=== PATIENT | male | born 1945 | race Caucasian/White ===

== ENCOUNTER 2022-09-21 01:18 | Emergency (ER) | payer OTHER, MEDICARE ==
[~2022-09-21] VITALS: Ht 182.9 cm; Wt 80.0 kg
[2022-09-21 01:21] VITALS: BP 115/85
== END 2022-09-21 03:07 | disposition home or self-care (01) ==
LOC: ER 01:20
DX: Z00.00 Encounter for general adult medical examination without abnormal findings (principal)
CPT/HCPCS: 99281